=== PATIENT | female | born 1970 | race African-American/Black ===

== ENCOUNTER 2020-08-24 09:35 | Emergency (ER) | payer MEDICAID ==
[~2020-08-24] VITALS: Ht 177.8 cm; Wt 52.6 kg
--- NOTE | 2020-08-24 10:03 | NUR ---
THIS IS A 50 YO F W/ C/O N/V/D SINCE YESTERDAY. PT DENIES ABD PAIN. PT REPORTS ONLY HX ENDOMETRIOSIS. PT HYPERTENSIVE, OTHER VS WDL. RESTING ON GURNEY W/ CALL LIGHT IN REACH AND SIDE RAILS UPX2. CONNECTED TO ALL MONITORING. RESP EVEN AND UNLABORED, NADN. AWAITING ED EVAL.
[2020-08-24] MEDS ORDERED: SODIUM CHLORIDE 0.9% 1,000ML IVBOLUS ONE (10:30)
[2020-08-24] MEDS ORDERED: SODIUM CHLORIDE FLUSH 10ML SYR IVF ONE (10:30)
[2020-08-24] MEDS ORDERED: ONDANSETRON 2MG/ML, 2ML IVPush ONE (10:30)
--- NOTE | 2020-08-24 10:45 | NUR ---
PER DR.SULLIVAN ESCOBAR TO BOLUS PT W/ BP.
[2020-08-24 10:48] LABS: BASOPHILS % (AUTO) 0 % (0-1); EOSINOPHILS % (AUTO) 0 % (1-7); LYMPHOCYTES % (AUTO) 8 % (22-44); MEAN CORPUSCULAR HEMOGLOBIN 26.8 pg (27.0-34.8); MEAN CORPUSCULAR HGB CONC 32.8 g/dL (32.4-35.8); MEAN PLATELET VOLUME 8.4 fL (7.4-10.4); MONOCYTES % (AUTO) 3 % (2-9); NEUTROPHILS % (AUTO) 90 % (42-75); PLATELET COUNT 224 x10^3/uL (130-400); RED BLOOD COUNT 4.52 x10^6/uL (3.82-5.3); RED CELL DISTRIBUTION WIDTH 15.9 % (9.6-15.2)
[2020-08-24] MEDS ORDERED: ONDANSETRON 2MG/ML, 2ML ONE (10:49)
[2020-08-24 10:57] LABS: ALANINE AMINOTRANSFERASE 26 U/L (12-78); ALBUMIN 4.5 g/dL (3.4-5.0); ANION GAP 10 mmol/L (5-15); CALCIUM 9.6 mg/dL (8.5-10.1); CHLORIDE 97 mmol/L (98-107); CREATININE 0.88 mg/dL (0.55-1.02)
[2020-08-24 10:59] LABS: ALKALINE PHOSPHATASE 86 U/L (45-117); BILIRUBIN,TOTAL 0.9 mg/dL (0.2-1.0); TOTAL PROTEIN 9.1 g/dL (6.4-8.2)
--- NOTE | 2020-08-24 11:00 | NUR ---
PT AMBULATED TO THE BR W/ A 1 PERSON ASSIST. URINE COLLECTED AND SENT TO LAB. RETURNED TO ROOM W/O INCIDENT.
[2020-08-24 11:54] LABS: MICROSCOPIC INDICATED
--- NOTE | 2020-08-24 12:20 | NUR ---
PER ERP. PT PROVIDED W/ WATER FOR PO CHALLENGE. INSTRUCTED TO TAKE SMALL SIPS.
[2020-08-24 13:09] VITALS: BP 205/109
--- NOTE | 2020-08-24 13:12 | NUR ---
PER ERP, OK TO DC PT W/ BP. PT EDUCATED THAT SHE NEEDS TO FOLLOW UP OUTPATIENT FOR HTN.
[2020-08-24] MEDS ORDERED: ONDANSETRON ODT 4 MG ONE (13:24)
[2020-08-24] MEDS ORDERED: ONDANSETRON ODT 4 MG PO ONE (13:30)
--- NOTE | 2020-08-24 13:30 | NUR ---
PER DR.SULLIVAN ESCOBAR TO GIVE PT 4MG ZOFRAN ODT PRIOR TO DC.
--- NOTE | 2020-08-24 13:36 | NUR ---
Patient given discharge instructions and they have confirmed that they understand the instructions. Patient ambulatory with steady gait. Patient using phone to call ride. Resp even and unlabored,
== END 2020-08-24 13:33 | disposition home or self-care (01) ==
LOC: ED 12:46
DX: K52.9 Noninfective gastroenteritis and colitis, unspecified (principal); R06.2 Wheezing; R94.31 Abnormal electrocardiogram [ECG] [EKG]; I10 Essential (primary) hypertension
CPT/HCPCS: 36415; 80053; 81001; 84703; 85025; 93005; 96361; 96374; 99285; J2405; J7030; Q0162